=== PATIENT | male | born 1930 | race Caucasian/White ===

== ENCOUNTER 2017-07-30 12:48 | Inpatient (IN) | payer MEDICARE, OTHER ==
[~2017-07-30] VITALS: Ht 185.4 cm; Wt 84.5 kg
[2017-07-30] MEDS ORDERED: dexamethasone sod phosphate 10mg/ml inj IV STA (13:03)
[2017-07-30] MEDS ORDERED: ipratropium/albuterol 3ml nebule NEB ONE (13:05)
[2017-07-30 13:19] LABS: BASOPHILS % (AUTO) 0.3 % (0-1); EOSINOPHILS # (AUTO) 0.1 X10'3 (0-0.9); HEMATOCRIT 32.5 % (42.0-52.0); LYMPHOCYTES # (AUTO) 1.3 X10'3 (1.1-4.8); LYMPHOCYTES % (AUTO) 12.1 % (21-51); MEAN CORPUSCULAR HEMOGLOBIN 31.3 PG (27.0-31.0); MEAN CORPUSCULAR HGB CONC 33.7 % (33.0-36.5); MEAN CORPUSCULAR VOLUME 92.9 FL (78-98); MEAN PLATELET VOLUME 7.1 FL (7.4-10.4); MONOCYTES # (AUTO) 1.4 X10'3 (0-0.9); MONOCYTES % (AUTO) 13.3 % (2-12); NEUTROPHILS # (AUTO) 7.7 X10'3 (1.8-7.7); NEUTROPHILS % (AUTO) 73.3 % (42-75); PLATELET COUNT 242 X10'3 (140-440); RED CELL DISTRIBUTION WIDTH 14.2 % (11.5-14.5); WHITE BLOOD COUNT 10.6 X10'3 (4.5-11.0)
[2017-07-30 13:31] LABS: D-DIMER 0.86 MG/L FEU (0-0.50)
[2017-07-30 13:35] LABS: ALANINE AMINOTRANSFERASE 24 U/L (12-78); ALBUMIN 2.7 G/DL (3.4-5.0); ALBUMIN/GLOBULIN RATIO 0.6 (1.1-1.5); ALKALINE PHOSPHATASE 90 IU/L (46-116); ANION GAP 9 (8-16); ASPARTATE AMINO TRANSFERASE 24 U/L (10-37); BILIRUBIN,TOTAL 0.9 MG/DL (0.1-1.0); BLOOD UREA NITROGEN 26 MG/DL (7-18); BUN/CREATININE RATIO 18.4 (5.4-32.0); CALCIUM 8.6 MG/DL (8.5-10.1); CHLORIDE 104 MMOL/L (99-107); CREATININE 1.41 MG/DL (0.60-1.10); GLUCOSE 130 MG/DL (70-104); POTASSIUM 3.6 MMOL/L (3.5-5.1); SODIUM 141 MMOL/L (135-145); TOTAL CARBON DIOXIDE 27.7 MMOL/L (24-32); TOTAL PROTEIN 6.9 G/DL (6.4-8.2); eGFR 48 ML/MIN
[2017-07-30] MEDS ORDERED: piperacillin/tazo 3.375gm/50ml 50 ML IV ONE (13:50)
[2017-07-30] MEDS ORDERED: vancomycin/NS 1 GM ADD-VANTAGE 250 ML IV ONE (13:50)
[2017-07-30] MEDS ORDERED: normal saline 1000ML IV soln IV ONE (13:55)
[2017-07-30] MEDS ORDERED: magnesium 2GM in 50ml NS 50 ML IV PRN (14:00)
[2017-07-30] MEDS ORDERED: HYDROcodone/acetaminophen 5mg/325mg tablet PO PRN (14:00)
[2017-07-30] MEDS ORDERED: ondansetron/PF 4mg/2ml inj IV PRN (14:00)
[2017-07-30] MEDS ORDERED: acetaminophen 325mg tablet PO PRN (14:00)
[2017-07-30] MEDS ORDERED: magnesium 4gm in 100ml NS 100 ML IV PRN (14:00)
[2017-07-30] MEDS ORDERED: mag hydrox/Alum hydrox/simeth 30ml oral suspension PO PRN (14:00)
[2017-07-30] MEDS ORDERED: HYDROcodone/acetaminophen 10/325mg tab PO PRN (14:00)
[2017-07-30] MEDS ORDERED: potassium Cl 40MEQ/NS 500ml 500 ML IV PRN ×2 (14:00)
[2017-07-30] MEDS ORDERED: magnesium hydroxide 30ml (MOM) UD suspension PO PRN (14:00)
[2017-07-30] MEDS ORDERED: albuterol 2.5 MG/3 ML nebule NEB PRN (14:00)
[2017-07-30] MEDS ORDERED: magnesium Cl slow-release 64mg tablet PO PRN (14:00)
[2017-07-30] MEDS ORDERED: potassium Cl 20 mEq SR tablet PO PRN (14:00)
[2017-07-30 14:11] LABS: ABG BASE EXCESS -2.7 mmol/L (-2.0-3.0); ABG HCO3 20.5 mmol/L (22.0-26.0); ABG OXYGEN SATURATION 97.3 % (95-98); ABG PCO2 (T) 30.1 mmHg (35.0-48.0); ABG PO2 (T) 103.8 mmHg (83-108); ALLEN'S TEST Positive; FCOHb 0.4 % (0.5-1.5); FLOW 1 L/min; FMetHb 0.3 % (0.3-1.12); FO2Hb 96.6 % (94-100); TOTAL HEMOGLOBIN 10.6 G/dl (14.0-18.0)
[2017-07-30 16:00] VITALS: BP 130/62
[2017-07-30 18:00] VITALS: BP 142/73
[2017-07-30] MEDS: docusate sod 100mg capsule PO SCH (20:21)
[2017-07-30] MEDS: piperacillin/tazo 3.375gm/50ml 50 ML IV SCH (20:22)
[2017-07-30] MEDS: methylPREDNISolone sod succ 125mg/2ml vial IV SCH (20:22)
[2017-07-30 22:00] VITALS: BP 139/76
[2017-07-31 02:00] VITALS: BP 141/72
[2017-07-31] MEDS: methylPREDNISolone sod succ 125mg/2ml vial IV SCH ×4 (02:21→21:30)
[2017-07-31] MEDS: piperacillin/tazo 3.375gm/50ml 50 ML IV SCH ×4 (02:22→21:30)
[2017-07-31 02:53] LABS: BASOPHILS % (AUTO) 0 % (0-1); EOSINOPHILS # (AUTO) 0.1 X10'3 (0-0.9); EOSINOPHILS % (AUTO) 1.1 % (0-6); HEMATOCRIT 33.1 % (42.0-52.0); LYMPHOCYTES % (AUTO) 10.5 % (21-51); MEAN CORPUSCULAR HEMOGLOBIN 31.2 PG (27.0-31.0); MEAN CORPUSCULAR HGB CONC 33.3 % (33.0-36.5); MEAN CORPUSCULAR VOLUME 93.7 FL (78-98); MEAN PLATELET VOLUME 7.6 FL (7.4-10.4); MONOCYTES # (AUTO) 0.3 X10'3 (0-0.9); MONOCYTES % (AUTO) 2.8 % (2-12); NEUTROPHILS # (AUTO) 8.5 X10'3 (1.8-7.7); NEUTROPHILS % (AUTO) 85.6 % (42-75); PLATELET COUNT 243 X10'3 (140-440); RED BLOOD COUNT 3.53 X10'6 (4.70-6.10); WHITE BLOOD COUNT 9.9 X10'3 (4.5-11.0)
[2017-07-31 04:10] LABS: ALBUMIN 2.6 G/DL (3.4-5.0); ANION GAP 14 (8-16); BLOOD UREA NITROGEN 26 MG/DL (7-18); BUN/CREATININE RATIO 19.1 (5.4-32.0); CALCIUM 9.1 MG/DL (8.5-10.1); CHLORIDE 101 MMOL/L (99-107); CREATININE 1.36 MG/DL (0.60-1.10); GLUCOSE 195 MG/DL (70-104); MAGNESIUM 2.6 MG/DL (1.5-2.4); POTASSIUM 3.2 MMOL/L (3.5-5.1); SODIUM 139 MMOL/L (135-145); TOTAL CARBON DIOXIDE 23.7 MMOL/L (24-32); eGFR 50 ML/MIN
[2017-07-31] MEDS: potassium Cl 20 mEq SR tablet PO PRN ×3 (04:59→15:31)
[2017-07-31] MEDS ORDERED: heparin 10,000 units/1 ML INJ IV ONE (05:20)
[2017-07-31] MEDS ORDERED: heparin 10,000 units/1 ML INJ IV PRN (05:20)
[2017-07-31 06:00] VITALS: BP 136/74
[2017-07-31 06:11] LABS: BASOPHILS % (AUTO) 0 % (0-1); EOSINOPHILS # (AUTO) 0.1 X10'3 (0-0.9); EOSINOPHILS % (AUTO) 0.9 % (0-6); HEMATOCRIT 32.3 % (42.0-52.0); HEMOGLOBIN 10.8 g/dl (14.0-17.9); LYMPHOCYTES % (AUTO) 9.9 % (21-51); MEAN CORPUSCULAR HEMOGLOBIN 31.4 PG (27.0-31.0); MEAN CORPUSCULAR HGB CONC 33.5 % (33.0-36.5); MEAN CORPUSCULAR VOLUME 93.7 FL (78-98); MEAN PLATELET VOLUME 7.4 FL (7.4-10.4); MONOCYTES # (AUTO) 0.4 X10'3 (0-0.9); MONOCYTES % (AUTO) 3.9 % (2-12); NEUTROPHILS # (AUTO) 8.9 X10'3 (1.8-7.7); NEUTROPHILS % (AUTO) 85.3 % (42-75); PLATELET COUNT 244 X10'3 (140-440); RED BLOOD COUNT 3.44 X10'6 (4.70-6.10); RED CELL DISTRIBUTION WIDTH 14.4 % (11.5-14.5); WHITE BLOOD COUNT 10.5 X10'3 (4.5-11.0)
[2017-07-31 06:21] LABS: PARTIAL THROMBOPLASTIN TIME 38 SECONDS (22-32); PROTHROMBIN TIME 10.3 SECONDS (9.0-12.0)
[2017-07-31] MEDS ORDERED: POTA20TA19 PO (08:25)
[2017-07-31] MEDS ORDERED: PREG50CA PO (08:25)
[2017-07-31] MEDS ORDERED: HYDR25TA4 PO (08:25)
[2017-07-31] MEDS ORDERED: RIVA15TA PO (08:25)
[2017-07-31] MEDS ORDERED: CHOL10002 PO (08:25)
[2017-07-31] MEDS ORDERED: TRAZ-146 PO (08:25)
[2017-07-31] MEDS ORDERED: FLUT16SP2 BOTHNARES (08:26)
[2017-07-31] MEDS ORDERED: CLON1TAB4 PO (08:27)
[2017-07-31] MEDS: furosemide 40mg/4ml inj IV SCH (08:35)
[2017-07-31] MEDS: docusate sod 100mg capsule PO SCH ×2 (08:36→21:33)
[2017-07-31] MEDS: lactobacillus rhamnosus 10,000 MMU CELLS/CAPSULE PO SCH ×2 (08:36→17:03)
[2017-07-31] MEDS: K and/or MAG REPLACEMENT MC SCH (08:57)
[2017-07-31 11:00] VITALS: BP 137/77
[2017-07-31 15:00] VITALS: BP 127/70
[2017-07-31] MEDS ORDERED: clonazePAM 1mg tablet PO PRN (16:05)
[2017-07-31 18:00] VITALS: BP 148/67
[2017-07-31] MEDS: pregabalin 25mg capsule PO SCH (21:31)
[2017-07-31] MEDS: traZODone 50mg tablet PO SCH (21:33)
[2017-07-31 22:00] VITALS: BP 127/70
[2017-08-01 02:00] VITALS: BP 127/81
[2017-08-01] MEDS: piperacillin/tazo 3.375gm/50ml 50 ML IV SCH ×4 (02:37→21:08)
[2017-08-01] MEDS: methylPREDNISolone sod succ 125mg/2ml vial IV SCH ×2 (02:37→07:55)
[2017-08-01 05:11] LABS: BASOPHILS % (AUTO) 0 % (0-1); EOSINOPHILS % (AUTO) 0 % (0-6); HEMATOCRIT 32.4 % (42.0-52.0); HEMOGLOBIN 10.9 g/dl (14.0-17.9); LYMPHOCYTES # (AUTO) 1.2 X10'3 (1.1-4.8); LYMPHOCYTES % (AUTO) 8.3 % (21-51); MEAN CORPUSCULAR HEMOGLOBIN 31.4 PG (27.0-31.0); MEAN CORPUSCULAR HGB CONC 33.5 % (33.0-36.5); MEAN CORPUSCULAR VOLUME 93.7 FL (78-98); MEAN PLATELET VOLUME 7.6 FL (7.4-10.4); MONOCYTES # (AUTO) 0.6 X10'3 (0-0.9); MONOCYTES % (AUTO) 4.3 % (2-12); NEUTROPHILS # (AUTO) 12.6 X10'3 (1.8-7.7); NEUTROPHILS % (AUTO) 87.4 % (42-75); PLATELET COUNT 281 X10'3 (140-440); RED BLOOD COUNT 3.46 X10'6 (4.70-6.10); RED CELL DISTRIBUTION WIDTH 13.6 % (11.5-14.5); WHITE BLOOD COUNT 14.4 X10'3 (4.5-11.0)
[2017-08-01 05:28] LABS: ALBUMIN 2.4 G/DL (3.4-5.0); ANION GAP 9 (8-16); BLOOD UREA NITROGEN 35 MG/DL (7-18); BUN/CREATININE RATIO 25.9 (5.4-32.0); CALCIUM 8.6 MG/DL (8.5-10.1); CHLORIDE 103 MMOL/L (99-107); CREATININE 1.35 MG/DL (0.60-1.10); GLUCOSE 154 MG/DL (70-104); MAGNESIUM 2.3 MG/DL (1.5-2.4); POTASSIUM 3.4 MMOL/L (3.5-5.1); SODIUM 140 MMOL/L (135-145); TOTAL CARBON DIOXIDE 28.3 MMOL/L (24-32); eGFR 50 ML/MIN
[2017-08-01 06:00] VITALS: BP 151/61
[2017-08-01] MEDS: furosemide 40mg/4ml inj IV SCH (07:54)
[2017-08-01] MEDS: lactobacillus rhamnosus 10,000 MMU CELLS/CAPSULE PO SCH ×2 (07:55→17:47)
[2017-08-01] MEDS: HYDROchlorothiazide 25mg tablet PO SCH (07:55)
[2017-08-01] MEDS: pregabalin 25mg capsule PO SCH ×3 (07:55→21:08)
[2017-08-01] MEDS: vitamin D (cholecalciferol) 1,000 unit tablet PO SCH (07:55)
[2017-08-01] MEDS: docusate sod 100mg capsule PO SCH ×2 (07:56→21:08)
[2017-08-01] MEDS: potassium Cl 20 mEq SR tablet PO SCH ×3 (07:56→17:47)
[2017-08-01] MEDS: fluticasone nasal spray 16GM bottle NS SCH (08:00)
[2017-08-01] MEDS: K and/or MAG REPLACEMENT MC SCH (08:00)
[2017-08-01 11:00] VITALS: BP 110/68
[2017-08-01] MEDS: rivaroxaban 15mg tablet PO SCH (12:19)
[2017-08-01 18:00] VITALS: BP 131/69
[2017-08-01] MEDS: traZODone 50mg tablet PO SCH (21:08)
[2017-08-01 22:00] VITALS: BP 121/76
[2017-08-02 02:00] VITALS: BP 122/77
[2017-08-02] MEDS: piperacillin/tazo 3.375gm/50ml 50 ML IV SCH ×4 (02:08→20:52)
[2017-08-02 05:27] LABS: BASOPHILS % (AUTO) 0 % (0-1); EOSINOPHILS % (AUTO) 0 % (0-6); HEMATOCRIT 32.6 % (42.0-52.0); HEMOGLOBIN 10.7 g/dl (14.0-17.9); LYMPHOCYTES # (AUTO) 2.2 X10'3 (1.1-4.8); LYMPHOCYTES % (AUTO) 15.5 % (21-51); MEAN CORPUSCULAR HEMOGLOBIN 30.9 PG (27.0-31.0); MEAN CORPUSCULAR VOLUME 93.7 FL (78-98); MEAN PLATELET VOLUME 7.4 FL (7.4-10.4); MONOCYTES # (AUTO) 1.2 X10'3 (0-0.9); MONOCYTES % (AUTO) 8.5 % (2-12); PLATELET COUNT 307 X10'3 (140-440); RED BLOOD COUNT 3.48 X10'6 (4.70-6.10); RED CELL DISTRIBUTION WIDTH 14.1 % (11.5-14.5); WHITE BLOOD COUNT 14.4 X10'3 (4.5-11.0)
[2017-08-02 05:43] LABS: ALBUMIN 2.4 G/DL (3.4-5.0); ANION GAP 9 (8-16); BLOOD UREA NITROGEN 40 MG/DL (7-18); BUN/CREATININE RATIO 27.4 (5.4-32.0); CHLORIDE 101 MMOL/L (99-107); CREATININE 1.46 MG/DL (0.60-1.10); GLUCOSE 116 MG/DL (70-104); MAGNESIUM 2.6 MG/DL (1.5-2.4); POTASSIUM 3.4 MMOL/L (3.5-5.1); SODIUM 141 MMOL/L (135-145); TOTAL CARBON DIOXIDE 31.1 MMOL/L (24-32); eGFR 46 ML/MIN
[2017-08-02 06:00] VITALS: BP 118/75
[2017-08-02] MEDS: fluticasone nasal spray 16GM bottle NS SCH (08:00)
[2017-08-02] MEDS: pregabalin 25mg capsule PO SCH ×3 (08:12→20:52)
[2017-08-02] MEDS: vitamin D (cholecalciferol) 1,000 unit tablet PO SCH (08:13)
[2017-08-02] MEDS: rivaroxaban 15mg tablet PO SCH (08:13)
[2017-08-02] MEDS: predniSONE 20 mg tablet PO SCH (08:14)
[2017-08-02] MEDS: lactobacillus rhamnosus 10,000 MMU CELLS/CAPSULE PO SCH ×2 (08:14→16:54)
[2017-08-02] MEDS: HYDROchlorothiazide 25mg tablet PO SCH (08:15)
[2017-08-02] MEDS: potassium Cl 20 mEq SR tablet PO PRN ×3 (08:15→20:53)
[2017-08-02] MEDS: furosemide 40mg/4ml inj IV SCH (08:16)
[2017-08-02] MEDS: docusate sod 100mg capsule PO SCH ×2 (08:16→20:52)
[2017-08-02] MEDS: K and/or MAG REPLACEMENT MC SCH (08:17)
[2017-08-02 11:00] VITALS: BP 123/59
[2017-08-02 15:00] VITALS: BP 109/60
[2017-08-02] MEDS ORDERED: potassium Cl 40MEQ/NS 500ml 500 ML IV PRN ×2 (16:25)
[2017-08-02] MEDS ORDERED: potassium Cl 20 mEq SR tablet PO PRN (16:25)
[2017-08-02 18:00] VITALS: BP 121/77
[2017-08-02] MEDS: traZODone 50mg tablet PO SCH (20:52)
[2017-08-02 22:00] VITALS: BP 128/82
[2017-08-03 02:00] VITALS: BP 127/83
[2017-08-03] MEDS: piperacillin/tazo 3.375gm/50ml 50 ML IV SCH ×2 (02:00→07:56)
[2017-08-03 05:43] LABS: BASOPHILS % (AUTO) 0.1 % (0-1); EOSINOPHILS % (AUTO) 0.1 % (0-6); HEMATOCRIT 32.6 % (42.0-52.0); HEMOGLOBIN 10.9 g/dl (14.0-17.9); LYMPHOCYTES # (AUTO) 2.6 X10'3 (1.1-4.8); LYMPHOCYTES % (AUTO) 18.3 % (21-51); MEAN CORPUSCULAR HGB CONC 33.5 % (33.0-36.5); MEAN CORPUSCULAR VOLUME 92.5 FL (78-98); MEAN PLATELET VOLUME 7.4 FL (7.4-10.4); MONOCYTES # (AUTO) 1.3 X10'3 (0-0.9); MONOCYTES % (AUTO) 9.1 % (2-12); NEUTROPHILS # (AUTO) 10.3 X10'3 (1.8-7.7); NEUTROPHILS % (AUTO) 72.4 % (42-75); PLATELET COUNT 330 X10'3 (140-440); RED BLOOD COUNT 3.52 X10'6 (4.70-6.10); RED CELL DISTRIBUTION WIDTH 13.7 % (11.5-14.5); WHITE BLOOD COUNT 14.2 X10'3 (4.5-11.0)
[2017-08-03 05:54] LABS: ALBUMIN 2.3 G/DL (3.4-5.0); ANION GAP 6 (8-16); BLOOD UREA NITROGEN 37 MG/DL (7-18); BUN/CREATININE RATIO 24.2 (5.4-32.0); CALCIUM 8.7 MG/DL (8.5-10.1); CHLORIDE 102 MMOL/L (99-107); CREATININE 1.53 MG/DL (0.60-1.10); GLUCOSE 105 MG/DL (70-104); MAGNESIUM 2.4 MG/DL (1.5-2.4); SODIUM 140 MMOL/L (135-145); TOTAL CARBON DIOXIDE 32.2 MMOL/L (24-32); eGFR 43 ML/MIN
[2017-08-03 06:00] VITALS: BP 130/88
[2017-08-03] MEDS: lactobacillus rhamnosus 10,000 MMU CELLS/CAPSULE PO SCH (07:56)
[2017-08-03] MEDS: rivaroxaban 15mg tablet PO SCH (07:56)
[2017-08-03] MEDS: potassium Cl 20 mEq SR tablet PO SCH (07:56)
[2017-08-03] MEDS: furosemide 40mg/4ml inj IV SCH (07:56)
[2017-08-03] MEDS: fluticasone nasal spray 16GM bottle NS SCH (07:57)
[2017-08-03] MEDS: pregabalin 25mg capsule PO SCH ×2 (07:57→13:41)
[2017-08-03] MEDS: predniSONE 20 mg tablet PO SCH (07:57)
[2017-08-03] MEDS: docusate sod 100mg capsule PO SCH (07:57)
[2017-08-03] MEDS: vitamin D (cholecalciferol) 1,000 unit tablet PO SCH (07:57)
[2017-08-03] MEDS: HYDROchlorothiazide 25mg tablet PO SCH (07:57)
[2017-08-03] MEDS: K and/or MAG REPLACEMENT MC SCH (08:00)
[2017-08-03 11:00] VITALS: BP 122/74
[2017-08-03] MEDS ORDERED: PRED20TA PO (12:06)
[2017-08-03] MEDS ORDERED: LACT1CAP26 PO (12:06)
[2017-08-03] MEDS ORDERED: LEVO500T89 PO (12:06)
== END 2017-08-03 14:00 | disposition home or self-care (01) | DRG 871 ==
LOC: ER 12:49 → ED HOLD 14:00 → PCU 3S 15:55
PROVIDERS: ADMIT Internal Medicine; ATTEND Family Medicine
DX: A40.9 Streptococcal sepsis, unspecified (principal); J96.01 Acute respiratory failure with hypoxia; E87.4 Mixed disorder of acid-base balance; J18.9 Pneumonia, unspecified organism; I48.2 Chronic atrial fibrillation; J44.0 Chronic obstructive pulmonary disease with (acute) lower respiratory infection; E78.00 Pure hypercholesterolemia, unspecified; E78.5 Hyperlipidemia, unspecified; I12.9 Hypertensive chronic kidney disease with stage 1 through stage 4 chronic kidney disease, or unspecified chronic kidney disease; K59.00 Constipation, unspecified; N18.9 Chronic kidney disease, unspecified; Z79.01 Long term (current) use of anticoagulants; Z79.899 Other long term (current) drug therapy; Z87.891 Personal history of nicotine dependence
CPT/HCPCS: 36415; 36600; 71010; 80048; 80053; 82803; 83605; 83735; 83880; 84145; 84439; 84443; 84484; 85018; 85025; 85379; 85610; 85730; 87040; 87070; 87077; 87186; 87502; 87503; 93005; 94640; 96374; 99285; J1100; J1644; J1940; J2543; J2930; J3370; J7030; J7512